=== PATIENT | male | born 1980 | race Caucasian/White ===

== ENCOUNTER 2020-03-28 13:56 | Emergency (ER) | payer MEDICAID ==
[~2020-03-28] VITALS: Ht 167.6 cm; Wt 71.2 kg
[2020-03-28 14:00] VITALS: BP 148/100
== END 2020-03-28 14:51 | disposition home or self-care (01) ==
LOC: ER 13:57
DX: F15.10 Other stimulant abuse, uncomplicated (principal); F10.10 Alcohol abuse, uncomplicated; Y90.9 Presence of alcohol in blood, level not specified
CPT/HCPCS: 99281

== ENCOUNTER 2023-05-01 22:53 | Emergency (ER) | payer MEDICAID ==
[~2023-05-01] VITALS: Ht 167.6 cm; Wt 68.2 kg
[2023-05-01 22:56] VITALS: BP 181/93; PULSE 103; RESP 16; TEMP 98.2; O2SAT 98
[2023-05-01] MEDS ORDERED: IBUP-1984 PO (23:26)
[2023-05-01] MEDS ORDERED: SULF1TAB45 PO (23:26)
== END 2023-05-01 23:33 ==
LOC: ER 22:53
DX: S90.911A Unspecified superficial injury of right ankle, initial encounter (principal); R78.0 Finding of alcohol in blood; F15.90 Other stimulant use, unspecified, uncomplicated; I10 Essential (primary) hypertension; Z79.1 Long term (current) use of non-steroidal anti-inflammatories (NSAID); Z79.2 Long term (current) use of antibiotics; X58.XXXA Exposure to other specified factors, initial encounter; Y93.89 Activity, other specified; Y92.89 Other specified places as the place of occurrence of the external cause; Y99.8 Other external cause status
CPT/HCPCS: 99283